=== PATIENT | female | born 1960 | race Native Hawaiian/Other Pacific Islander ===

== ENCOUNTER 2022-12-01 23:03 | Emergency (ER) | payer OTHER ==
[~2022-12-01] VITALS: Ht 154.9 cm; Wt 90.3 kg
== END 2022-12-02 00:45 | disposition home or self-care (01) ==
LOC: ED 23:03
DX: M54.41 Lumbago with sciatica, right side (principal)
CPT/HCPCS: 96372; 99283; J1170; J2550